=== PATIENT | female | born 1995 | race Caucasian/White ===

== ENCOUNTER 2020-06-11 06:35 | Day surgery (SDC) | payer OTHER ==
[~2020-06-11] VITALS: Ht 144.8 cm; Wt 83.7 kg
[2020-06-11 06:49] VITALS: BP 106/72; PULSE 83; TEMP 97.6
[2020-06-11] MEDS ORDERED: SYNTHROID 0.0.025 MG PO (06:54)
[2020-06-11] MEDS ORDERED: COGENTIN 1MG1 MG/TAB PO (06:54)
[2020-06-11] MEDS ORDERED: RESTORIL 1515 MG/CAP PO (06:55)
[2020-06-11] MEDS ORDERED: SEROQUEL 200MG200 MG PO (06:55)
[2020-06-11] MEDS ORDERED: INDERAL 20MG20 MG PO (06:56)
[2020-06-11 08:45] VITALS: BP 102/64; PULSE 83
--- NOTE | 2020-06-11 08:45 | NUR ---
Pt to [facility] via cart from [facility]. Pt drowsy. Pt continuously shakes head "no" as if trying to wake up or reorient self. This makes pt very restless in bed. Pt transfered to recliner. Warm blankets placed on pt. Pt becomes more calm. Muffin and sprite given per pt request. Will continue to monitor. Call light within reach.
[2020-06-11 09:00] VITALS: BP 95/68; PULSE 76
--- NOTE | 2020-06-11 09:00 | NUR ---
Pt denies any needs. Tolerating food and fluids without difficulties. Pt denies needs. Call light within reach.
[2020-06-11 09:15] VITALS: BP 107/69; PULSE 61
--- NOTE | 2020-06-11 09:15 | NUR ---
Pt continues to rest. Denies needs. Call light within reach.
--- NOTE | 2020-06-11 09:30 | NUR ---
IV site discontinued with all parts intact. Pt up to dress. Discharge instructions reviewed. Pt voices understanding.
--- NOTE | 2020-06-11 09:45 | NUR ---
Pt escorted to private car via wheel chair. Pt accompanied home by her roommate.
== END 2020-06-11 09:45 | disposition home or self-care (01) ==
LOC: SDCO 06:35
DX: D12.4 Benign neoplasm of descending colon (principal); K29.50 Unspecified chronic gastritis without bleeding; K92.1 Melena; K64.0 First degree hemorrhoids; K52.9 Noninfective gastroenteritis and colitis, unspecified; F32.9 Major depressive disorder, single episode, unspecified; F41.9 Anxiety disorder, unspecified; Z90.49 Acquired absence of other specified parts of digestive tract; J45.909 Unspecified asthma, uncomplicated; D64.9 Anemia, unspecified; Z20.822 Contact with and (suspected) exposure to COVID-19; K21.9 Gastro-esophageal reflux disease without esophagitis
CPT/HCPCS: J2704; J7120